=== PATIENT | female | born 1945 | race Caucasian/White ===

== ENCOUNTER 2017-01-03 08:50 | Emergency (ER) | payer OTHER, MEDICARE ==
[~2017-01-03] VITALS: Ht 162.6 cm; Wt 117.9 kg
--- NOTE | 2017-01-03 09:02 | ED NECK/BACK PAIN COMPLAINT ---
History of Present Illness General Chief Complaint: Low Back Pain/Injury Stated Complaint: BACK PAIN S/P BENDING Source: patient, family, old records, EMS Exam Limitations: no limitations Vital Signs & Intake/Output Vital Signs & Intake/Output Vital Signs Date Time Temp Pulse Resp B/P Pulse O2 O2 Flow FiO2 Ox Delivery Rate 01/03 1128 76 18 126/74 98 Room Air 01/03 0901 96.1 62 18 156/70 100 Room Air Allergies Coded Allergies: Penicillins (Mild, RASH 01/03/17) Triage Nurses Notes Reviewed? yes HPI: 3 days ago patient was bending over to put on her socks when she felt a sudden pulling sensation in her left mid and lower back. Since then pain has been worsening with movement. There is no weakness or numbness. There is no incontinence of bowel or bladder. This morning she was going to the bathroom and then was unable to get up from the toilet secondary to the pain. The pain is a throbbing aching sensation that increases with movement. There is no radiation. The pain is 10 out of 10. Patient denies any other injury. Past History Travel History Traveled to [place] past 21 day No Medical History Any Pertinent Medical History? see below for history Neurological: NONE EENT: NONE Cardiovascular: NONE Respiratory: NONE Gastrointestinal: NONE Hepatic: NONE Renal: NONE Musculoskeletal: ARTHIRITIS Psychiatric: NONE Endocrine: hypothyroidism Blood Disorders: NONE Cancer(s): NONE LYRIC WRITER/Reproductive: NONE Surgical History Surgical History: non-contributory Psychosocial History What is your primary language [place] Tobacco Use: Never used ETOH Use: denies use Illicit Drug Use: denies illicit drug use Family History Hx Contributory? No Review of Systems Review of Systems Constitutional: Reports: no symptoms. Ears, Nose, Throat, Mouth: Reports: no symptoms. Respiratory: Reports: no symptoms. Cardiovascular: Reports: no symptoms. Gastrointestinal/Abdominal: Reports: no symptoms. Musculoskeletal: Reports: see HPI, back pain. Neurological/Psychological: Reports: no symptoms. Physical Exam Physical Exam General Appearance: well developed/nourished, alert, awake, moderate distress Head: atraumatic Eyes: Bilateral: PERRL. Ears, Nose, Throat, Mouth: hearing grossly normal, moist mucous membrane Neck: normal inspection, supple, full range of motion, no midline tenderness Respiratory: normal breath sounds, chest non-tender, no respiratory distress, lungs clear Cardiovascular: regular rate/rhythm, normal peripheral pulses Gastrointestinal: normal bowel sounds, soft, non-tender, no organomegaly Back: muscle spasm, no vertebral tenderness Straight Leg Raising: Right: Negative. Left: Negative. Neurologic/Psych: no motor/sensory deficits, awake, alert, oriented x 3, normal mood/affect Progress Differential Diagnosis: herniated disc, myofascial strain, sciatica, T/L spine injury Plan of Care: Current Medications Sig/Thiago Start time Last Medication Dose Stop Time Status Admin Cyclobenzaprine HCl 5 MG ONCE ONE 01/03 915 CAN (Flexeril 5MG Tab) 01/04 916 Comments: Patient is feeling better after the Valium and Toradol. She was able to get up and ambulated to the bathroom. Patient states that the pain is down to 4-10 and she feels comfortable going home. Departure Departure Disposition: HOME OR SELF CARE Condition: Stable Clinical Impression Primary Impression: Back pain Secondary Impressions: Muscle spasm Referrals: SEAN GONCALVES,EVERETT (PCP/Family) Additional Instructions: Use moist heat. Take medications as needed. Return if symptoms worsen or for any concerns. Departure Forms: Customer Survey General Discharge Information Prescriptions: Current Visit Scripts Diazepam (Valium) 1 TAB PO Q8P PRN PAIN #30 TAB Tylenol With Codeine (Tylenol With Codeine #3 Tablet) 1 TAB PO Q8P PRN PAIN #20 TAB
[2017-01-03 11:28] VITALS: BP 126/74
[2017-01-03] MEDS ORDERED: VALIUM5 M2 PO (11:32)
[2017-01-03] MEDS ORDERED: TYLENOL WITH C1 EACH PO (11:32)
== END 2017-01-03 11:52 ==
LOC: ERH 08:50
DX: M62.830 Muscle spasm of back (principal)
CPT/HCPCS: 96372; J1885; J3360